=== PATIENT | male | born 1985 | race African-American/Black ===

== ENCOUNTER 2020-11-24 13:40 | Emergency (ER) | payer SELFPAY | END 2020-11-24 15:43 | disposition home or self-care (01) | LOC: CSHERS 13:40 | DX: J06.9 Acute upper respiratory infection, unspecified (principal); F17.210 Nicotine dependence, cigarettes, uncomplicated | CPT/HCPCS: 71045; 93005 ==

== ENCOUNTER 2021-07-05 22:08 | Emergency (ER) | payer SELFPAY ==
[2021-07-05 23:40] LABS: SARS-CoV-2 NAA Rapid Test Not Detected (NotDetected)
== END 2021-07-06 00:33 | disposition home or self-care (01) ==
LOC: CSHERS 22:08
DX: J10.1 Influenza due to other identified influenza virus with other respiratory manifestations (principal); F17.210 Nicotine dependence, cigarettes, uncomplicated; Z20.822 Contact with and (suspected) exposure to COVID-19
CPT/HCPCS: 0241U; 71045; 93005

== ENCOUNTER 2022-08-01 17:17 | Emergency (ER) | payer SELFPAY | END 2022-08-01 18:12 | disposition home or self-care (01) | LOC: CSHERS 17:17 | DX: S42.402D Unspecified fracture of lower end of left humerus, subsequent encounter for fracture with routine healing (principal); F17.200 Nicotine dependence, unspecified, uncomplicated; X58.XXXD Exposure to other specified factors, subsequent encounter ==